=== PATIENT | female | born 1970 | race African-American/Black ===

== ENCOUNTER 2020-11-13 14:03 | Outpatient (CLI) | payer OTHER, SELFPAY ==
[2020-11-14 07:59] LABS: Rapid Plasma Reagin Non-Reactive (NonReactive)
== END 2020-11-13 14:04 | disposition home or self-care (01) ==
PROVIDERS: PCP Internal Medicine Gastroenterology; Visit Provider Obstetrics & Gynecology
DX: Z11.3 Encounter for screening for infections with a predominantly sexual mode of transmission (principal)
CPT/HCPCS: 36415; 86592; 86695; 86696